=== PATIENT | male | born 1965 | race Two or more races ===

== ENCOUNTER 2021-08-20 10:00 | Outpatient (CLI) | payer OTHER | END 2021-08-20 10:15 | disposition home or self-care (01) | LOC: PPH VACUNA 10:00 | PROVIDERS: ATTEND Emergency Medicine Pediatric Emergency Medicine | DX: Z23 Encounter for immunization (principal) ==

== ENCOUNTER 2022-04-06 11:10 | Outpatient (CLI) | payer OTHER | END 2022-04-06 11:20 | disposition home or self-care (01) | LOC: PPH VACUNA 11:10 | PROVIDERS: ATTEND Emergency Medicine Pediatric Emergency Medicine | DX: Z23 Encounter for immunization (principal) ==